=== PATIENT | male | born 1940 | race Caucasian/White ===

== ENCOUNTER → 2016-08-24 | Outpatient (CLI) | payer OTHER ==
[~2016-08-24] MED LIST: CRESTOR5 MG PO; Ecotrin PO; FLAX SEED OIL1 EACH PO; FLEXERIL10 MG PO; GARLIC1 EACH PO; GLUCOSAMINE SULFATE PO; KENALOG,ARISTOC15 GM TP; MSM1000 MG PO; NAPROSYN500 MG PO; NORVASC5 MG PO; TYLENOL ARTHRI650 M2 PO; VITAMIN D1000 UNIT PO; XANAX0.5 MG PO
== END | disposition home or self-care (01) ==
LOC: RES 08:17
DX: R06.00 Dyspnea, unspecified (principal)
CPT/HCPCS: 94010; 94726; 94729